=== PATIENT | female | born 1990 | race Caucasian/White ===

== ENCOUNTER 2021-11-12 15:42 | Emergency (ER) | payer OTHER ==
[~2021-11-12] VITALS: Ht 154.9 cm; Wt 69.4 kg
--- NOTE | 2021-11-12 15:50 | NUR ---
BIBMOM C/O RASH SPREADING AT R KNEE x 8DAYS. FRM UC YESTERDAY & STARTED
[2021-11-12 16:01] VITALS: BP 127/87
[2021-11-12] MEDS ORDERED: CEPH500C2 PO (16:10)
[2021-11-12] MEDS ORDERED: CEPHALEXIN MONOHYDRATE 500 MG CAPSULE PO ONE ×2 (16:11→16:30)
--- NOTE | 2021-11-12 16:17 | NUR ---
Patient discharged to home in stable condition. Written and verbal after care instructions given. Patient verbalizes understanding of instruction.
== END 2021-11-12 16:21 | disposition home or self-care (01) ==
LOC: ER 15:51
DX: L03.115 Cellulitis of right lower limb (principal)

== ENCOUNTER 2022-11-17 15:24 | Emergency (ER) | payer OTHER ==
[~2022-11-17] VITALS: Ht 152.4 cm; Wt 70.8 kg
[~2022-11-17 15:24] MED LIST: CEPH500C2 PO
[2022-11-17 15:32] VITALS: BP 132/73
--- NOTE | 2022-11-17 15:35 | NUR ---
THE PATIENT BIBS FOR C/O FACIAL RASH X 3 DAYS. IN ROOM AIR AND DENIES SOB. RESPIRATION REGULAR AND UNLABORED. WILL CONTINUE TO MONITOR THE PATIENT.
[2022-11-17] MEDS ORDERED: MINE105O TP (16:22)
[2022-11-17] MEDS ORDERED: CEPH500T PO (16:22)
[2022-11-17] MEDS ORDERED: TRIA15OI2 TP (16:22)
== END 2022-11-17 16:27 | disposition home or self-care (01) ==
LOC: ER 15:30
DX: L30.9 Dermatitis, unspecified (principal); Z79.899 Other long term (current) drug therapy

== ENCOUNTER 2024-03-27 16:27 | Emergency (ER) | payer OTHER ==
[~2024-03-27] VITALS: Ht 152.4 cm; Wt 68.0 kg
[~2024-03-27 16:27] MED LIST changes: +CEPH500T PO; +MINE105O TP; +TRIA15OI2 TP
[2024-03-27 16:57] VITALS: BP 117/76; TEMP 98.6; O2SAT 98
== END 2024-03-27 19:13 | disposition left against medical advice (07) ==
LOC: ER 16:37
DX: N89.8 Other specified noninflammatory disorders of vagina (principal); Z53.21 Procedure and treatment not carried out due to patient leaving prior to being seen by health care provider